=== PATIENT | male | born 1960 | race Caucasian/White ===

== ENCOUNTER 2019-04-23 13:29 | Day surgery (SDC) | payer OTHER ==
[2019-04-15 12:19] LABS: BASOPHILS # (AUTO) 0.1 X10'3 (0-0.2); BASOPHILS % (AUTO) 0.9 % (0-1); EOSINOPHILS # (AUTO) 0.2 X10'3 (0-0.9); EOSINOPHILS % (AUTO) 3.2 % (0-6); LYMPHOCYTES # (AUTO) 1.8 X10'3 (1.1-4.8); LYMPHOCYTES % (AUTO) 24.7 % (21-51); MEAN CORPUSCULAR HEMOGLOBIN 27.7 PG (27.0-31.0); MEAN CORPUSCULAR HGB CONC 34.1 g/dL (33.0-36.5); MEAN CORPUSCULAR VOLUME 81.2 FL (78-98); MEAN PLATELET VOLUME 9.3 FL (7.4-10.4); MONOCYTES # (AUTO) 0.5 X10'3 (0-0.9); MONOCYTES % (AUTO) 6.6 % (2-12); NEUTROPHILS # (AUTO) 4.7 X10'3 (1.8-7.7); NEUTROPHILS % (AUTO) 64.6 % (42-75); PRE OP HEMATOCRIT 44.2 % (42.0-52.0); PRE OP HEMOGLOBIN 15.1 g/dL (14.0-17.9); PRE OP PLATELET COUNT 246 X10'3 (140-440); RED BLOOD COUNT 5.44 X10'6 (4.70-6.10); RED CELL DISTRIBUTION WIDTH 14.1 % (11.5-14.5)
[2019-04-15 12:45] LABS: HEMOGLOBIN A1C 8.6 % (4.5-6.2)
[2019-04-15 12:46] LABS: ALBUMIN 3.9 G/DL (3.4-5.0); ALKALINE PHOSPHATASE 58 IU/L (46-116); BLOOD UREA NITROGEN 15 MG/DL (7-18); BUN/CREATININE RATIO 13.6 (5.4-32.0); CALCIUM 9.6 MG/DL (8.5-10.1); CHLORIDE 101 MMOL/L (99-107); PRE OP ALT 78 U/L (30-65); PRE OP ANION GAP 13 (8-16); PRE OP AST 43 U/L (10-37); PRE OP BILIRUB, TOTAL 0.2 MG/DL (0.0-1.0); PRE OP POTASSIUM 3.9 MMOL/L (3.4-5.1); PRE OP SODIUM 140 MMOL/L (135-145); TOTAL CARBON DIOXIDE 26.2 MMOL/L (24-32); eGFR 69 ML/MIN
[2019-04-15 12:51] LABS: PRE OP GLUCOSE 221 MG/DL (70-104)
[~2019-04-23] VITALS: Ht 177.8 cm; Wt 144.5 kg
[2019-04-23] VITALS (17 sets, daily range): BP systolic 121–151; BP diastolic 64–95
[~2019-04-23 13:29] MED LIST: ASPI-611 PO; LISI10TA4 PO; METF1000 PO; cefazolin/dext.iso 2gm/100ml 100 ML IV ONE; famotidine 20mg tablet PO ONE; ringers solution, lacted 1,000 ML IV SCH
[2019-04-23] MEDS ORDERED: acetaminophen 1,000mg/100ml IV 100 ML IV PRN (14:40)
[2019-04-23] MEDS ORDERED: meperidine/PF 25mg/ml syringe IV PRN ×3 (14:40)
[2019-04-23] MEDS ORDERED: proCHLORperazine 10 MG/2 ml inj IV PRN (14:40)
[2019-04-23] MEDS ORDERED: morphine 4 MG/ML inj SYRINge IV PRN ×2 (14:40)
[2019-04-23] MEDS ORDERED: ondansetron/PF 4mg/2ml inj IV PRN (14:40)
[2019-04-23] MEDS ORDERED: ringers solution, lacted 1,000 ML IV SCH (14:40)
[2019-04-23] MEDS ORDERED: fentaNYL/PF 50MCG/1 ML 2ML syringe ONE ×2 (14:44→15:10)
[2019-04-23] MEDS ORDERED: midazolam 2 mg/2 ml injection ONE (14:47)
[2019-04-23] MEDS ORDERED: propofol 10mg/ml 20ml vial IV ONE (14:49)
[2019-04-23] MEDS ORDERED: desflurane 240ml liquid inh. IH ONE (14:49)
[2019-04-23] MEDS ORDERED: propofol inj 20 ML IV ONE (15:18)
[2019-04-23] MEDS ORDERED: ceFAZolin 1000mg inj ONE (15:18)
[2019-04-23] MEDS ORDERED: rocuronium 10mg/ml inj IV ONE (15:18)
[2019-04-23] MEDS ORDERED: LIDOcaine 2% (20mg/ml) 5ml vial ONE (15:18)
[2019-04-23] MEDS ORDERED: ROPIVAcaine 0.5% (5mg/ml) 30ml vial ONE (15:36)
[2019-04-23] MEDS ORDERED: epiNEPHrine 1 mg/ml 30ml MDV ONE (15:37)
[2019-04-23] MEDS ORDERED: labetalol 20mg/4ml (5mg/ml) syringe IV ONE (15:43)
[2019-04-23] MEDS ORDERED: esmolol inj. 10 ML IV ONE (15:43)
[2019-04-23] MEDS ORDERED: ondansetron/PF 4mg/2ml inj ONE (15:44)
[2019-04-23] MEDS ORDERED: dexamethasone sod phosphate 4mg/ml inj. ONE (15:44)
--- NOTE | 2019-04-23 16:10 | NUR ---
PReceived from OR via BED, accompanied by Anesthesiologist DR VÁSQUEZ and report given by Anesthesiologist. PT DROWSY, NO S/S OF DISTRESS/DISCOMFORT, RIGHT KNEE W/KYMBERLY WRAP COVERING INCISION CDI. Addendum: 04/23/19 at 1634 by Tierney Sierra RN Amended: Links added.
--- NOTE | 2019-04-23 18:40 | NUR ---
PT GIVEN INCENTIVE SPIROMETER TO USE, INCREASED SA02, PT IS TAKING HOME TO USE WELL DURING RECOVERY PERIOD. D/C INSTRUCTIONS GIVEN AND GONE OVER W/PT AND PTS FAMILY, PT D/CD TO HOME VIA W/C TO PRIVATE VEHICLE W/O INCIDENT. Addendum: 04/23/19 at 1857 by Tierney Sierra RN Amended: Links added.
== END 2019-04-23 18:40 | disposition home or self-care (01) ==
LOC: PAS 13:29
PROVIDERS: ATTEND Orthopaedic Surgery
DX: S83.241A Other tear of medial meniscus, current injury, right knee, initial encounter (principal); S83.281A Other tear of lateral meniscus, current injury, right knee, initial encounter; E11.9 Type 2 diabetes mellitus without complications; I10 Essential (primary) hypertension; E66.9 Obesity, unspecified; Z68.42 Body mass index [BMI] 45.0-49.9, adult; F17.290 Nicotine dependence, other tobacco product, uncomplicated; Z98.890 Other specified postprocedural states; Z79.84 Long term (current) use of oral hypoglycemic drugs; Z79.899 Other long term (current) drug therapy; X58.XXXA Exposure to other specified factors, initial encounter; Y93.89 Activity, other specified; Y92.89 Other specified places as the place of occurrence of the external cause; Y99.8 Other external cause status
CPT/HCPCS: 29880; 36415; 80053; 82948; 83036; 85025; J0131; J0171; J0690; J1100; J2001; J2175; J2250; J2405; J2704; J3010; A4215; A4618; A6449; A7000; J2795; J3490; J7120